=== PATIENT | female | born 1985 | race Caucasian/White ===

== ENCOUNTER → 2017-12-29 | Outpatient (CLI) | payer OTHER ==
[~2017-12-29] MED LIST: FIORICET 325 MG1 TAB PO; Fioricet 325 MG1 TAB PO; MACROBID100 M1 PO; PRENATAL1 TA1 PO; TYLENOL EXTRA500 M1 PO
== END | disposition home or self-care (01) ==
LOC: LAB 01:21
DX: N64.3 Galactorrhea not associated with childbirth (principal)

== ENCOUNTER 2018-07-27 09:27 | Emergency (ER) | payer OTHER ==
[~2018-07-27] VITALS: Ht 175.2 cm; Wt 73.5 kg
[2018-07-27] MEDS ORDERED: ADDERALL 30 MG30 MG PO (09:29)
== END 2018-07-27 10:46 | disposition home or self-care (01) ==
LOC: ED 09:27
DX: G43.909 Migraine, unspecified, not intractable, without status migrainosus (principal); R03.0 Elevated blood-pressure reading, without diagnosis of hypertension; Z79.899 Other long term (current) drug therapy; Z88.0 Allergy status to penicillin

== ENCOUNTER 2022-04-12 16:52 | Emergency (ER) | payer OTHER ==
[~2022-04-12] VITALS: Ht 167.6 cm; Wt 63.5 kg
[~2022-04-12 16:52] MED LIST changes: +ADDERALL 30 MG30 MG PO
== END 2022-04-12 19:03 | disposition home or self-care (01) ==
LOC: ED 16:52
DX: G43.909 Migraine, unspecified, not intractable, without status migrainosus (principal)

== ENCOUNTER → 2022-05-18 | Outpatient (CLI) | payer OTHER ==
[2022-05-18 09:32] LABS: ALKALINE PHOSPHATASE 76 U/L (45-117); BUN 13 mg/dl (7-24); CHLORIDE 109 mmol/L (98-107); CHOLESTEROL 146 mg/dL (<200); CREATININE 0.58 mg/dL (0.55-1.02); FREE T4 0.95 ng/dl (0.76-1.46); HEMATOCRIT 38.4 % (37.0-47.0); LDL CHOLESTEROL 53 mg/dL (9-159); MEAN CELL VOLUME 91.6 fl (81.0-99.0); MEAN CORPUSCULAR HGB 29.8 pg (27.0-31.0); MEAN CORPUSCULAR HGB CONC 32.6 g/dl (33.0-37.0); MEAN PLATELET VOLUME 10.2 fl (9.6-12.3); RED BLOOD COUNT 4.19 10*6/uL (4.10-5.10); RED CELL DISTRI WIDTH 13.2 % (0-14.5); SGOT/AST 14 IU/L (3-35); SGPT/ALT 24 U/L (12-78); SODIUM 142 mmol/L (136-145); TOTAL PROTEIN 6.6 gm/dL (6.4-8.2); TRIGLYCERIDES 115 mg/dl (<150); WHITE BLOOD COUNT 6.4 10*3/uL (4.8-10.8)
[2022-05-18 10:07] LABS: THYROID STIM HORMONE (HS) 0.005 uIU/ml (0.358-4.75)
[2022-05-18 10:18] LABS: VITAMIN D, 25-HYDROXY 22.7 ng/mL (30-100)
[2022-05-19 04:06] LABS: PROLACTIN 31.2 ng/mL (4.8-23.3)
== END | disposition home or self-care (01) ==
LOC: LAB 08:03
PROVIDERS: ATTEND Family Medicine
DX: Z00.00 Encounter for general adult medical examination without abnormal findings (principal); I25.10 Atherosclerotic heart disease of native coronary artery without angina pectoris; R53.83 Other fatigue; E55.9 Vitamin D deficiency, unspecified; K21.9 Gastro-esophageal reflux disease without esophagitis

== ENCOUNTER → 2023-02-02 | Outpatient (CLI) | payer OTHER ==
[2023-02-02 16:19] LABS: HEMATOCRIT 38.5 % (37.0-47.0); MEAN CELL VOLUME 91.2 fl (81.0-99.0); MEAN CORPUSCULAR HGB 28.9 pg (27.0-31.0); MEAN CORPUSCULAR HGB CONC 31.7 g/dl (33.0-37.0); MEAN PLATELET VOLUME 9.6 fl (9.6-12.3); RED BLOOD COUNT 4.22 10*6/uL (4.10-5.10); RED CELL DISTRI WIDTH 13.4 % (0-14.5); WHITE BLOOD COUNT 4.9 10*3/uL (4.8-10.8)
[2023-02-02 16:38] LABS: ALKALINE PHOSPHATASE 62 U/L (46-116); BUN 13 mg/dl (9-23); CHLORIDE 104 mmol/L (98-107); CHOLESTEROL 187 mg/dL (<200); FREE T4 1.11 ng/dl (0.89-1.76); LDL CHOLESTEROL 112 mg/dL (9-159); POTASSIUM 3.9 mmol/L (3.4-5.1); SGPT/ALT 30 U/L (10-49); THYROID STIM HORMONE (HS) 2.405 uIU/ml (0.550-4.780); TOTAL PROTEIN 7.2 gm/dL (6.0-8.0); TRIGLYCERIDES 68 mg/dl (<150)
[2023-02-02 17:03] LABS: VITAMIN D, 25-HYDROXY 27.1 ng/mL (30-100)
== END | disposition home or self-care (01) ==
LOC: LAB 16:03
PROVIDERS: ATTEND Family Medicine
DX: Z13.220 Encounter for screening for lipoid disorders (principal); E55.9 Vitamin D deficiency, unspecified; O92.6 Galactorrhea; E22.1 Hyperprolactinemia; R53.83 Other fatigue

== ENCOUNTER → 2023-02-16 | Outpatient (CLI) | payer OTHER | END | disposition home or self-care (01) | LOC: MRI 00:39 | PROVIDERS: ATTEND Family Medicine | DX: E22.1 Hyperprolactinemia (principal); R51.9 Headache, unspecified ==

== ENCOUNTER 2025-08-05 14:53 | Emergency (ER) | payer SELFPAY ==
[~2025-08-05] VITALS: Wt 81.6 kg
[2025-08-05] MEDS ORDERED: Tdap Vaccine 0.5 ML SYR (Adult Vaccine) IM ONE (15:40)
[2025-08-05] MEDS ORDERED: CLEOCIN HCL300 MG PO (15:45)
== END 2025-08-05 16:13 | disposition home or self-care (01) ==
LOC: ED 14:53
DX: S61.512A Laceration without foreign body of left wrist, initial encounter (principal); R20.2 Paresthesia of skin; R20.0 Anesthesia of skin; Z88.0 Allergy status to penicillin; Z79.899 Other long term (current) drug therapy; V86.56XA Driver of dirt bike or motor/cross bike injured in nontraffic accident, initial encounter; Y93.55 Activity, bike riding; Y92.89 Other specified places as the place of occurrence of the external cause; Y99.8 Other external cause status